=== PATIENT | male | born 1990 | race Caucasian/White ===

== ENCOUNTER 2023-07-11 11:26 | Outpatient (CLI) | payer BC | END 2023-07-11 11:27 | disposition home or self-care (01) | LOC: CSHULT 11:26 | PROVIDERS: ATTEND Registered Nurse Emergency | DX: R10.11 Right upper quadrant pain (principal); J10.1 Influenza due to other identified influenza virus with other respiratory manifestations; J45.909 Unspecified asthma, uncomplicated; K80.20 Calculus of gallbladder without cholecystitis without obstruction; K82.8 Other specified diseases of gallbladder; K83.8 Other specified diseases of biliary tract | CPT/HCPCS: 76705 ==